=== PATIENT | female | born 1995 | race Two or more races ===

== ENCOUNTER 2023-06-06 09:00 | Observation (INO) | payer MEDICAID ==
[2023-06-06] MEDS ORDERED: PREN-96 PO (10:36)
== END 2023-06-06 10:56 | disposition home or self-care (01) ==
LOC: LDRP 09:00 → UNDOADMOB 09:00 → LDRP 09:11
PROVIDERS: ADMIT Obstetrics & Gynecology; ATTEND Obstetrics & Gynecology
DX: O48.0 Post-term pregnancy (principal); Z3A.40 40 weeks gestation of pregnancy
CPT/HCPCS: 59025; 76818; 81002; 94760; G0378

== ENCOUNTER 2023-06-08 09:53 | Observation (INO) | payer OTHER, MEDICAID ==
[~2023-06-08] VITALS: Ht 160 cm; Wt 93.0 kg
[~2023-06-08 09:53] MED LIST: PREN-96 PO
[2023-06-08] MEDS: LACTATED RINGER'S 1,000 ML IV ONE (11:18)
== END 2023-06-08 12:41 | disposition home or self-care (01) ==
LOC: LDRP 09:53
PROVIDERS: ADMIT Obstetrics & Gynecology; ATTEND Obstetrics & Gynecology
DX: O48.0 Post-term pregnancy (principal); O62.9 Abnormality of forces of labor, unspecified; Z3A.40 40 weeks gestation of pregnancy
CPT/HCPCS: 59025; 76818; 81002; 94760; G0378

== ENCOUNTER 2023-06-10 07:18 | Inpatient (IN) | payer OTHER, MEDICAID ==
[~2023-06-10] VITALS: Ht 160 cm; Wt 111.6 kg
[2023-06-10] MEDS ORDERED: BUTORPHANOL TARTRATE 2 MG/1 ML VIAL IV PRN ×2 (07:30)
[2023-06-10] MEDS ORDERED: LIDOCAINE 2%HCL (LOCAL ANESTH.) INJ 20ML MDV IJ PRN (07:30)
[2023-06-10] MEDS ORDERED: DERMOPLAST 60ML BOTTLE TOP PRN (07:30)
[2023-06-10] MEDS ORDERED: WITCH HAZEL-GLYCERIN PAD TOP PRN (07:30)
[2023-06-10] MEDS ORDERED: PHISODERM TOP SOLN 240ML BTL TOP PRN (07:30)
[2023-06-10 07:49] LABS: Urine Bacteria None Seen /hpf (None Seen)
[2023-06-10 08:00] LABS: Basophils # (auto) 0 10 ^3/uL (0-0.2); Basophils % (auto) 0.4 % (0.0-2.0); Eosinophils # (auto) 0.1 10 ^3/uL (0-0.8); Eosinophils % (auto) 1.3 % (0.0-7.0); Hematocrit 40.1 % (36.0-46.0); Hemoglobin 13.4 g/dL (12.2-16.2); Lymphocytes % (auto) 25.9 % (10.0-50.0); Mean Corpuscular Hemoglobin 28.7 pg (28.0-32.0); Mean Corpuscular Hgb Conc. 33.4 g/dL (32.0-36.0); Mean Corpuscular Volume 86.1 fL (80.0-100.0); Monocytes # (auto) 0.4 10 ^3/uL (0-1.3); Monocytes % (auto) 5.7 % (0.0-12.0); Neutrophils # (auto) 5.1 10 ^3/uL (1.6-8.6); Neutrophils % (auto) 66.7 % (37.0-80.0); Red Blood Cells 4.66 10^6/uL (4.0-5.20); Red Cell Distribution Width 14.9 % (11.8-14.3); White Blood Cell 7.7 10^3/uL (4.4-10.8)
[2023-06-10 08:18] LABS: Amphetamine Screen, Urine Neg (NEGATIVE); Barbiturate Scree,Urine Neg (NEGATIVE); Benzodiazephine Screen, Urine Neg (NEGATIVE); Cannabinoid Screen, Urine Neg (NEGATIVE); Cocaine Screen, Urine Neg (NEGATIVE); Opiate Scree,Urine Neg (NEGATIVE); Phencyclidine Screen, Urine Neg (NEGATIVE)
[2023-06-10 08:20] LABS: Alanine Aminotransferase 15 U/L (7-40); Albumin 4.1 g/dL (3.2-4.8); Alkaline Phosphatase 191 U/L (46-116); Anion Gap 9 (5-15); Aspartate Aminotransferase 23 U/L (13-40); BUN/Creatinine Ratio 8.5 (10.0-20.0); Blood Urea Nitrogen 6 mg/dL (9-23); Calcium 9.4 mg/dL (8.5-10.1); Carbon Dioxide 21 mmol/L (20-30); Chloride 107 mmol/L (98-107); Glucose 101 mg/dL (74-106); Potassium 3.9 mmol/L (3.5-5.1); Sodium 137 mmol/L (136-145)
[2023-06-10 08:21] LABS: Bilirubin, Total 0.6 mg/dL (0.2-1.0); Total Protein 6.8 g/dL (5.7-8.2)
[2023-06-10 08:24] LABS: INR 0.92 (0.9-1.15); Partial Thromboplastin Time 29.9 SEC (24.5-34.5); Prothrombin Time 9.7 sec (9.3-11.8)
[2023-06-10 08:46] LABS: Urine Blood Negative /uL (Negative); Urine Clarity Clear (Clear); Urine Color Light-Yellow (Yellow); Urine Protein, UAD Negative (Negative); Urine Specific Gravity 1.013 (1.001-1.035); Urine Urobilinogen Normal (Negative); Urine WBC 1 /hpf (0 - 5); Urine pH 6.5 (5.0-9.0)
[2023-06-10] MEDS: LACTATED RINGER'S 1,000 ML IV SCH (09:15)
[2023-06-10] MEDS: miSOPROStol 50 MCG per PRE-CUT 1/2 TAB PO PRN (09:23)
[2023-06-10] MEDS ORDERED: TERBUTALINE SULFATE 1 MG/ML 1ML VIAL SC PRN (18:00)
[2023-06-11] MEDS ORDERED: TERBUTALINE SULFATE 1 MG/ML 1ML VIAL SC PRN (02:45)
[2023-06-11 06:06] LABS: RPR Non Reactive (Non Reactive)
[2023-06-11] MEDS: ePHEDrine SULFATE 50 MG/ML AMP ONE (07:13)
[2023-06-11] MEDS: LIDOCAINE HCL 2 %PF INJ 10ML AMP IJ ONE (07:15)
[2023-06-11] MEDS: NALOXONE HCL 0.4 MG/ML VIAL IV ONE (07:15)
[2023-06-11] MEDS: fentaNYL CITRATE 100 MCG/2 ML VL IV ONE (07:15)
[2023-06-11] MEDS: fentaNYL CITRATE 100 MCG/2 ML VL ONE (07:35)
[2023-06-11] MEDS: ROPIVACAINE HCL 200 ML ONE (07:47)
[2023-06-11] MEDS: ePHEDrine SULFATE 50 MG/ML AMP IV ONE (07:50)
[2023-06-11] MEDS: FAMOTIDINE (10MG/ML) 2ML VL IV ONE ×2 (08:43→08:45)
[2023-06-11] MEDS: LACT. RINGERS/OXYTOCIN 20UNITS 1,000 ML IV SCH (10:30)
[2023-06-11] MEDS ORDERED: GENTAMICIN PER PHARMACY 0 ML IV SCH (19:30)
[2023-06-11] MEDS ORDERED: METHYLERGONOVINE MALEATE 0.2 MG/ML AMP IM PRN (19:30)
[2023-06-11] MEDS ORDERED: miSOPROStol 100 mcg TAB SL PRN (19:30)
[2023-06-11] MEDS ORDERED: ONDANSETRON HCL 4 MG/2 ML VIAL IV PRN (19:30)
[2023-06-11] MEDS ORDERED: miSOPROStol 100 mcg TAB PR PRN (19:30)
[2023-06-11] MEDS: ACETAMINOPHEN 500 MG TAB PO SCH (19:35)
[2023-06-11] MEDS: SODIUM CHLORIDE 0.9% 500 ML IUPC ONE (20:00)
[2023-06-11 20:10] LABS: Basophils # (auto) 0 10 ^3/uL (0-0.2); Basophils % (auto) 0.2 % (0.0-2.0); Eosinophils # (auto) 0 10 ^3/uL (0-0.8); Eosinophils % (auto) 0.1 % (0.0-7.0); Hematocrit 41.4 % (36.0-46.0); Hemoglobin 13.2 g/dL (12.2-16.2); Lymphocytes # (auto) 1.6 10 ^3/uL (0.4-5.4); Lymphocytes % (auto) 9.1 % (10.0-50.0); Mean Corpuscular Hemoglobin 28.3 pg (28.0-32.0); Mean Corpuscular Volume 88.5 fL (80.0-100.0); Monocytes % (auto) 5.7 % (0.0-12.0); Neutrophils # (auto) 14.4 10 ^3/uL (1.6-8.6); Neutrophils % (auto) 84.9 % (37.0-80.0); Red Blood Cells 4.68 10^6/uL (4.0-5.20); Red Cell Distribution Width 15.2 % (11.8-14.3)
[2023-06-11] MEDS: AMPICILLIN SOD 2GM INJ 2 GM in SODIUM CHL 0.9% 100 ML IV SCH (20:16)
[2023-06-11 20:30] LABS: Lactic Acid w/Reflex 2.5 mmol/L (0.4-2.0)
[2023-06-11] MEDS ORDERED: SODIUM CHLORIDE 0.9% 1,000 ML IUPC SCH (20:30)
[2023-06-11] MEDS: GENTAMICIN SULFATE 380 MG in D5W 5% 100 ML IV ONE (20:30)
[2023-06-11] MEDS: LACT. RINGERS/OXYTOCIN 20UNITS 500 ML IV ONE (21:55)
[2023-06-11] MEDS: TRANEXAMIC ACID 1,000 MG in SODIUM CHL 0.9% 100 ML IV ONE (22:06)
[2023-06-11] MEDS ORDERED: ACETAMINOPHEN 325 MG TAB PO PRN (23:00)
[2023-06-12] VITALS (7 sets, daily range): BP systolic 111–130; BP diastolic 60–76; PULSE 82–105; RESP 18–20; TEMP 97.6–99; O2SAT 97–100
[2023-06-12] MEDS: LACT. RINGERS/OXYTOCIN 20UNITS 500 ML IV ONE (05:46)
[2023-06-12 07:26] LABS: Basophils # (auto) 0 10 ^3/uL (0-0.2); Basophils % (auto) 0.1 % (0.0-2.0); Eosinophils # (auto) 0 10 ^3/uL (0-0.8); Eosinophils % (auto) 0.1 % (0.0-7.0); Hematocrit 34.8 % (36.0-46.0); Hemoglobin 11.3 g/dL (12.2-16.2); Lymphocytes # (auto) 1.9 10 ^3/uL (0.4-5.4); Lymphocytes % (auto) 11.5 % (10.0-50.0); Mean Corpuscular Hemoglobin 28.3 pg (28.0-32.0); Mean Corpuscular Hgb Conc. 32.5 g/dL (32.0-36.0); Mean Corpuscular Volume 87.1 fL (80.0-100.0); Monocytes # (auto) 1.1 10 ^3/uL (0-1.3); Monocytes % (auto) 6.4 % (0.0-12.0); Neutrophils # (auto) 13.5 10 ^3/uL (1.6-8.6); Neutrophils % (auto) 81.9 % (37.0-80.0); Red Cell Distribution Width 14.8 % (11.8-14.3); White Blood Cell 16.5 10^3/uL (4.4-10.8)
[2023-06-12 07:31] LABS: Chloride 111 mmol/L (98-107); Potassium 3.8 mmol/L (3.5-5.1); Sodium 141 mmol/L (136-145)
[2023-06-12 07:32] LABS: Anion Gap 7 (5-15); Carbon Dioxide 23 mmol/L (20-30)
[2023-06-12 07:33] LABS: Calcium 8.9 mg/dL (8.5-10.1)
[2023-06-12 07:38] LABS: BUN/Creatinine Ratio 10.5 (10.0-20.0); Blood Urea Nitrogen 9 mg/dL (9-23); Glucose 127 mg/dL (74-106)
[2023-06-12] MEDS: PRENATAL VITAMIN TAB PO SCH (08:31)
[2023-06-12] MEDS: AMPICILLIN SOD 2GM INJ 2 GM in SODIUM CHL 0.9% 100 ML IV SCH (08:33)
[2023-06-12 19:06] LABS: Treponema pallidum Ab (FTA-Ab) Non Reactive (Non Reactive)
[2023-06-12] MEDS: GENTAMICIN SULFATE 380 MG in D5W 5% 100 ML IV SCH (19:51)
[2023-06-12] MEDS: IBUPROFEN 600 MG TAB PO PRN (19:52)
[2023-06-12] MEDS: DOCUSATE SOD 100 MG CAP PO SCH (22:02)
[2023-06-13 03:00] VITALS: BP 122/64; PULSE 88; RESP 18; TEMP 98; O2SAT 100
[2023-06-13 06:30] VITALS: BP 113/56; PULSE 92; RESP 18; TEMP 98.4; O2SAT 99
[2023-06-13] MEDS ORDERED: MEASLES, MUMPS & RUBELLA VAC(MMRII) 0.5ML SC ONE (10:30)
[2023-06-13 10:39] VITALS: BP 110/62; PULSE 90; RESP 18; TEMP 98.2; O2SAT 100
[2023-06-13] MEDS: MEASLES, MUMPS & RUBELLA VAC(MMRII) 0.5ML SC ONE (11:00)
== END 2023-06-13 15:00 | disposition home or self-care (01) | DRG 805 ==
LOC: LDRP 07:18
PROVIDERS: ADMIT Obstetrics & Gynecology; ATTEND Obstetrics & Gynecology
PROC: 10E0XZZ Delivery of Products of Conception, External Approach (ICD-10-PCS; principal; 2023-06-11)
PROC: 0KQM0ZZ Repair Perineum Muscle, Open Approach (ICD-10-PCS; 2023-06-11)
PROC: 3E0R3BZ Introduction of Anesthetic Agent into Spinal Canal, Percutaneous Approach (ICD-10-PCS; 2023-06-11)
PROC: 00HU33Z Insertion of Infusion Device into Spinal Canal, Percutaneous Approach (ICD-10-PCS; 2023-06-11)
DX: O48.0 Post-term pregnancy (principal); O41.1230 Chorioamnionitis, third trimester, not applicable or unspecified; Z37.0 Single live birth; O77.0 Labor and delivery complicated by meconium in amniotic fluid; O70.1 Second degree perineal laceration during delivery; O76 Abnormality in fetal heart rate and rhythm complicating labor and delivery; Z3A.40 40 weeks gestation of pregnancy
CPT/HCPCS: 36415; 59025; 59200; 59409; 62282; 80048; 80053; 80170; 80307; 81001; 83605; 85025; 85610; 85730; 86592; 86850; 86900; 86901; 87040; 94760; 94762; 96360; 96361; 96366; 96374; G0378; J2590; J3490; J7060